=== PATIENT | female | born 1950 | race African-American/Black ===

== ENCOUNTER 2017-03-09 23:19 | Emergency (ER) | payer MEDICARE, OTHER ==
[~2017-03-09 23:19] MED LIST: ASPI-612 PO; CARV12.52 PO; FURO40TA4 PO; LOSA25TA4 PO; POTA25TA4 PO; SIMV20TA3 PO
[2017-03-09] MEDS ORDERED: ALBUTEROL SULFATE 2.5 MG/3 ML NEBU. ONE (23:24)
[2017-03-09] MEDS ORDERED: IPRATRPIUM/ALBUTEROL 0.5/2.5MG 3 ML NEBU. ONE (23:24)
[2017-03-10] MEDS ORDERED: methylPREDNISolone SOD SUCC PF 125 MG/2 ML VIAL. IV ONE (01:15)
[2017-03-10 02:22] VITALS: BP 177/103
[2017-03-10] MEDS ORDERED: PRED50TA PO (02:30)
[2017-03-10] MEDS ORDERED: PROAIR HFA8.5 GM INH (02:30)
--- NOTE | 2017-03-10 02:31 | PHYS DOC ---
Past Medical History Past Medical History: Asthma, Hypertension, Other Additional Past Medical Histor: "leaky" heart valve Past Surgical History: Pacemaker, Other Additional Past Surgical Histo: cardiac cath with stent placement Alcohol Use: Occasionally Drug Use: None Adult General Chief Complaint Chief Complaint: SHORTNESS OF BREATH HPI HPI 66-year-old -Tong[place] female with a history of asthma previous smoker but not for a long time by her description. Patient now presents to the emergency department with an asthma attack. She reports she's been out of her inhaler for 2 days. Patient thinks doubt whether triggered her wheezing. She has no productive cough or fever. No other complaints. She is not currently on steroids Review of Systems Review of Systems Constitutional: Denies fever or chills [] Eyes: Denies change in visual acuity, redness, or eye pain [] HENT: Denies nasal congestion or sore throat [] Respiratory: Denies cough or shortness of breath [] Cardiovascular: No additional information not addressed in HPI [] GI: Denies abdominal pain, nausea, vomiting, bloody stools or diarrhea [] : Denies dysuria or hematuria [] Musculoskeletal: Denies back pain or joint pain [] Integument: Denies rash or skin lesions [] Neurologic: Denies headache, focal weakness or sensory changes [] Endocrine: Denies polyuria or polydipsia [] All other systems were reviewed and found to be within normal limits, except as documented in this note. Current Medications Current Medications Current Medications Medications (Trade) Dose Ordered Sig/Humberto Start Time Stop Time Status Last Admin Dose Admin Albuterol Sulfate (Ventolin Neb Soln) 2.5 mg STK-MED ONCE 03/09/17 23:24 03/09/17 23:25 DC Albuterol/ Ipratropium (Duoneb) 3 ml STK-MED ONCE 03/09/17 23:24 03/09/17 23:25 DC Methylprednisolone Sodium Succinate (SOLU-Medrol 125MG VIAL) 125 mg 1X ONCE 03/10/17 01:15 03/10/17 02:15 DC 03/10/17 01:45 125 MG Allergies Allergies Allergies Coded Allergies Type Severity Reaction Last Updated Verified No Known Drug Allergies 08/15/13 No Physical Exam Physical Exam Well-appearing patient mild tachypnea on arrival. Bilateral bronchospasm. She is alert communicative cooperative and appropriate in no acute distress. Exam otherwise benign including no lower extremity edema Constitutional: Well developed, well nourished, no acute distress, non-toxic appearance. [] HENT: Normocephalic, atraumatic, bilateral external ears normal, oropharynx moist, no oral exudates, nose normal. [] Eyes: PERRLA, EOMI, conjunctiva normal, no discharge. [] Neck: Normal range of motion, no tenderness, supple, no stridor. [] Cardiovascular:Heart rate regular rhythm, no murmur [] Lungs & Thorax: As above Abdomen: Bowel sounds normal, soft, no tenderness, no masses, no pulsatile masses. [] Skin: Warm, dry, no erythema, no rash. [] Back: No tenderness, no CVA tenderness. [] Extremities: No tenderness, no cyanosis, no clubbing, ROM intact, no edema. [] Neurologic: Alert and oriented X 3, normal motor function, normal sensory function, no focal deficits noted. [] Psychologic: Affect normal, judgement normal, mood normal. [] Current Patient Data Vital Signs Vital Signs Date Time Temp Pulse Resp B/P (MAP) Pulse Ox O2 Delivery O2 Flow Rate FiO2 03/10/17 02:22 97 21 177/103 (127) 100 Nasal Cannula 2.0 03/09/17 23:22 97.6 97.6 EKG EKG [] Radiology/Procedures Radiology/Procedures [] Course & Med Decision Making Course & Med Decision Making Pertinent Labs and Imaging studies reviewed. (See chart for details) Signs and symptoms consistent with exacerbation of asthma triggered by weather. Patient with no productive cough or infectious prodrome. X-ray unremarkable remainder of workup benign. Patient dramatically improved after respiratory therapy. She feels near baseline and is comfortable with outpatient follow-up. We'll prescribe steroids and inhaler with spacer. She'll follow up with PCP in one day. She agrees with outpatient follow-up and strict return precautions given [] Dragon Disclaimer Dragon Disclaimer This electronic medical record was generated, in whole or in part, using a voice recognition dictation system. Departure Departure Impression: Primary Impression: Asthma exacerbation Disposition: HOME, SELF-CARE Condition: IMPROVED Referrals: NO PCP (PCP) Patient Instructions: Asthma, Adult Additional Instructions: B been experiencing an attack of asthma this evening. Use your inhaler with a spacer 2 puffs every 4 hours as needed. Finish prednisone once a day for 5 days as prescribed. Follow-up with your doctor tomorrow for reevaluation and return immediately for new severe or worsening symptoms Scripts Albuterol Sulfate (PROAIR HFA INHALER) 8.5 Gm Hfa.aer.ad 1 PUFF INH Q4HRS Y for SHORTNESS OF BREATH, #1 INHALER 0 Refills Prov: JOS NAIR MD 03/10/17 Prednisone (PREDNISONE) 50 Mg Tablet 1 TAB PO DAILY, #5 TAB Prov: JOS NAIR MD 03/10/17 JOS NAIR MD Mar 10, 2017 02:31
--- NOTE | 2017-03-10 08:42 | RAD ---
EXAM: Chest one view. HISTORY: Shortness of breath, asthma, wheezing. COMPARISON: 09/14/2013. FINDINGS: A frontal view of the chest is obtained. A left-sided pacer/defibrillator has its leads in the right atrium and right ventricle. There are no confluent infiltrates. There is no pneumothorax or pleural effusion. The heart is moderately enlarged. IMPRESSION: 1. Moderate cardiomegaly.
== END 2017-03-10 03:06 | disposition home or self-care (01) ==
LOC: ER 23:19
DX: J45.901 Unspecified asthma with (acute) exacerbation (principal); I10 Essential (primary) hypertension; Z95.0 Presence of cardiac pacemaker; Z95.5 Presence of coronary angioplasty implant and graft; Z87.891 Personal history of nicotine dependence; Z79.899 Other long term (current) drug therapy
CPT/HCPCS: 71010; 94250; 94640; 96374; 99284; J2930

== ENCOUNTER → 2017-06-04 | Outpatient (CLI) | payer MEDICARE, OTHER ==
[2017-06-04] MEDS: REGADENOSON 0.4 MG/5 ML DISP.SYRIN. IV (08:45)
== END | disposition home or self-care (01) ==
LOC: NM 08:22
DX: I25.5 Ischemic cardiomyopathy (principal); I25.10 Atherosclerotic heart disease of native coronary artery without angina pectoris
CPT/HCPCS: 78452; 93017; 93306; 96374; 96375; 96376; A9500; J2785

== ENCOUNTER → 2017-09-18 | Outpatient (CLI) | payer MEDICARE, OTHER | END | disposition home or self-care (01) | LOC: CT 08:02 | DX: J18.9 Pneumonia, unspecified organism (principal); I31.3 Pericardial effusion (noninflammatory); E01.0 Iodine-deficiency related diffuse (endemic) goiter; I51.7 Cardiomegaly | CPT/HCPCS: 71250 ==

== ENCOUNTER → 2017-10-23 | Outpatient (CLI) | payer MEDICARE, OTHER | END | disposition home or self-care (01) | LOC: KCIC MAMMO 12:45 | DX: R92.8 Other abnormal and inconclusive findings on diagnostic imaging of breast (principal); I13.0 Hypertensive heart and chronic kidney disease with heart failure and stage 1 through stage 4 chronic kidney disease, or unspecified chronic kidney disease; I50.23 Acute on chronic systolic (congestive) heart failure; N18.3 Chronic kidney disease, stage 3 (moderate); E78.5 Hyperlipidemia, unspecified; E78.00 Pure hypercholesterolemia, unspecified; J44.1 Chronic obstructive pulmonary disease with (acute) exacerbation | CPT/HCPCS: 76641; 77066; G0279 ==

== ENCOUNTER → 2017-11-12 | Outpatient (CLI) | payer MEDICARE, OTHER | END | disposition home or self-care (01) | LOC: US 08:14 | DX: N60.31 Fibrosclerosis of right breast (principal); I13.0 Hypertensive heart and chronic kidney disease with heart failure and stage 1 through stage 4 chronic kidney disease, or unspecified chronic kidney disease; N18.3 Chronic kidney disease, stage 3 (moderate); I50.23 Acute on chronic systolic (congestive) heart failure; J44.1 Chronic obstructive pulmonary disease with (acute) exacerbation; E78.00 Pure hypercholesterolemia, unspecified; I25.10 Atherosclerotic heart disease of native coronary artery without angina pectoris; Z95.5 Presence of coronary angioplasty implant and graft; Z95.0 Presence of cardiac pacemaker; Z87.01 Personal history of pneumonia (recurrent); F17.200 Nicotine dependence, unspecified, uncomplicated; Z79.82 Long term (current) use of aspirin; Z79.899 Other long term (current) drug therapy | CPT/HCPCS: 19081; 19083; 76942; 77065; 88305; C1713 ==

== ENCOUNTER 2018-01-19 09:16 | Outpatient (CLI) | payer MEDICARE, OTHER ==
[~2018-01-19] VITALS: Ht 154.9 cm; Wt 68.0 kg
[~2018-01-19 09:16] MED LIST changes: +BACITRACIN 50,000 UNIT in IV NORMAL SALINE 250ML 250 ML IRR ONE; +LEVO500T59 PO; +LISI-334 PO; -LOSA25TA4 PO; +LOSA25TA5 PO; +PRED50TA PO; +PROAIR HFA8.5 GM INH; +SACU1TAB PO
[2018-01-19 09:47] LABS: HEMATOCRIT 42.6 % (36.0-47.0); RED BLOOD COUNT 4.64 x10^6/uL (3.50-5.40); RED CELL DISTRIBUTION WIDTH 13.7 % (11.5-14.5); WHITE BLOOD COUNT 4.5 x10^3/uL (4.0-11.0)
[2018-01-19 09:55] LABS: CREATININE 1.1 mg/dL (0.6-1.0); GFR 59.9; POTASSIUM 4.1 mmol/L (3.5-5.1)
[2018-01-19] MEDS ORDERED: VANCOMYCIN 1 GM in IV DEXTROSE 5% 250 ML IV ONE (10:00)
[2018-01-19 10:06] LABS: PROTHROMBIN TIME PATIENT 12.8 SEC (11.7-14.0)
[2018-01-19] MEDS ORDERED: LIDOCAINE 2%/EPI 1:100,000 20 ML VIAL. ONE (10:20)
[2018-01-19 10:42] VITALS: BP 159/98
[2018-01-19] MEDS ORDERED: fentaNYL PF VIAL 100 MCG/2 ML VIAL ONE ×2 (10:54→11:40)
[2018-01-19] MEDS ORDERED: MIDAZOLAM HCL/PF 2 MG/2 ML VIAL. ONE ×2 (10:55→11:41)
[2018-01-19] MEDS ORDERED: MIDAZOLAM HCL/PF 2 MG/2 ML VIAL. IV ONE (12:00)
[2018-01-19] MEDS ORDERED: LIDOCAINE 2%/EPI 1:100,000 20 ML VIAL. IJ ONE (12:00)
[2018-01-19] MEDS ORDERED: fentaNYL PF VIAL 100 MCG/2 ML VIAL IV ONE (12:00)
[2018-01-19 12:14] VITALS: BP 133/74
[2018-01-19 12:23] VITALS: BP 123/68
--- NOTE | 2018-01-19 12:49 | CARD ---
MR#: [id number] Date of Study: 01/19/2018 Ordering Physician: TACOS CHAPMAN, Referring Physician: TACOS CHAPMAN, Tech: APPROVED REPORT EXAM Successful Biotronik automatic implantable cardioverter defibrillator generator change Moderate sedation: 41 minutes INDICATIONS Chronic systolic heart failure, AICD battery depletion PROCEDURE After explaining the risks, benefits, and alternative options, informed consent was obtained from the patient. The patient was brought to the cardiac catheterization lab and the left chest and shoulder were prepp ed and draped in the usual fashion. 25 mL of 2% lidocaine was infiltrated into the skin and subcutaneous tissues for local anesthesia. An incision was made over the previous scar and using blunt dissection and cautery the pocket was opene d, capsule exposed and opened and the previously placed generator removed from the pocket. The leads were detached, interrogated and found to be functioning well and reattached to a Biotronik dual-chamb er AICD generator model Iperia 7 DR-T, serial #[id number]. This was placed in the pocket that was subse quently closed in 3 layers. Hemostasis was secured. Patient tolerated the procedure well. There were no immediate complications. CONCLUSION Successful Biotronik dual-chamber AICD generator change for battery depletion Signed by : Tacos Chapman, Electronically Approved : 01/19/2018 12:48:11
[2018-01-19 12:56] VITALS: BP 148/72
--- NOTE | 2018-01-26 10:41 | CARD ---
MR#: [id number] Date of Study: 01/19/2018 Ordering Physician: TACOS CHAPMAN, Referring Physician: TACOS CHAPMAN, Tech: APPROVED REPORT EXAM Successful Biotronik automatic implantable cardioverter defibrillator generator change Moderate sedation: 41 minutes INDICATIONS Chronic systolic heart failure, AICD battery depletion PROCEDURE After explaining the risks, benefits, and alternative options, informed consent was obtained from the patient. The patient was brought to the cardiac catheterization lab and the left chest and shoulder were prepp ed and draped in the usual fashion. 25 mL of 2% lidocaine was infiltrated into the skin and subcutaneous tissues for local anesthesia. An incision was made over the previous scar and using blunt dissection and cautery the pocket was opene d, capsule exposed and opened and the previously placed generator removed from the pocket. The leads were detached, interrogated and found to be functioning well and reattached to a Biotronik dual-chamb er AICD generator model Iperia 7 DR-T, serial #[id number]. This was placed in the pocket that was subse quently closed in 3 layers. Hemostasis was secured. Patient tolerated the procedure well. There were no immediate complications. CONCLUSION Successful Biotronik dual-chamber AICD generator change for battery depletion Signed by : Tacos Chapman, Electronically Approved : 01/19/2018 12:48:11
== END 2018-01-19 13:30 | disposition home or self-care (01) ==
LOC: CCL 09:16
PROVIDERS: ATTEND Internal Medicine Cardiovascular Disease
DX: Z45.02 Encounter for adjustment and management of automatic implantable cardiac defibrillator (principal); I25.5 Ischemic cardiomyopathy; I25.2 Old myocardial infarction; I25.10 Atherosclerotic heart disease of native coronary artery without angina pectoris; Z79.01 Long term (current) use of anticoagulants; Z79.82 Long term (current) use of aspirin; Z79.899 Other long term (current) drug therapy; I47.1 Supraventricular tachycardia; I11.0 Hypertensive heart disease with heart failure; I50.22 Chronic systolic (congestive) heart failure; I34.0 Nonrheumatic mitral (valve) insufficiency; Z95.5 Presence of coronary angioplasty implant and graft; Z98.890 Other specified postprocedural states; Z87.891 Personal history of nicotine dependence; Z72.89 Other problems related to lifestyle
CPT/HCPCS: 33263; 36415; 80048; 85027; 85610; 99152; 99153; C1721; J0690; J2250; J3010; J3490; J7050; 33240; J7030

== ENCOUNTER → 2018-03-17 | Outpatient (CLI) | payer MEDICARE, OTHER ==
[2018-03-14 11:05] VITALS: BP 137/82
[~2018-03-17] MED LIST changes: -BACITRACIN 50,000 UNIT in IV NORMAL SALINE 250ML 250 ML IRR ONE; +CARV12.511 PO; -CARV12.52 PO; +SACU1TAB4 PO
[2018-03-17 09:08] LABS: CREATININE 1.2 mg/dL (0.6-1.0); GFR 54.2; POTASSIUM 4.3 mmol/L (3.5-5.1)
== END | disposition home or self-care (01) ==
LOC: LAB 08:20
PROVIDERS: ATTEND Internal Medicine Cardiovascular Disease
DX: I11.0 Hypertensive heart disease with heart failure (principal); I50.22 Chronic systolic (congestive) heart failure
CPT/HCPCS: 36415; 80048

== ENCOUNTER → 2018-08-20 | Outpatient (CLI) | payer MEDICARE, OTHER ==
[2018-03-14 11:05] VITALS: BP 137/82
[~2018-08-20] MED LIST changes: +ALBU2.5V8 INH; +IOHEXOL 300 MG/ML 100ML VIAL. IV ONE; -LOSA25TA5 PO; +LOSA25TA54 PO; -PROAIR HFA8.5 GM INH
[2018-08-20 10:05] LABS: CREATININE 1.1 mg/dL (0.6-1.0); GFR 59.8
--- NOTE | 2018-08-20 11:39 | RAD ---
CT of the chest with contrast 08/20/2018 INDICATION: Chest mass, follow-up COMPARISON STUDY: CT of the chest March 12, 2018, December 02, 2013. FINDINGS: Multidetector CT imaging of the chest was performed following the administration of IV contrast. The heart is enlarged but similar to prior exam. Small amount of pericardial effusion appears to be present. Pacemaking device noted. Stable size and configuration of a 3.7 cm mass at the medial left costophrenic angle. Finding is stable back to 2013 suggesting a benign etiology. Limited visualization of the upper abdomen demonstrates no acute changes. No pneumothorax or significant pleural effusion is identified on today's study. No focal consolidation or infiltrate is seen. No acute osseous changes are identified. IMPRESSION: Stable appearance of the benign-appearing 3.7 cm mass in the medial left costophrenic angle. CT DOSING PQRS STATEMENT: One or more of the following individualized dose reduction techniques were utilized for this examination: 1. Automated exposure control 2. Adjustment of the mA and/or kV according to patient size 3. Use of iterative reconstruction technique Electronically signed by: Tim Roa MD (08/20/2018 11:36 AM) [id number]
== END | disposition home or self-care (01) ==
LOC: CT 09:28
PROVIDERS: ATTEND Internal Medicine Critical Care Medicine
DX: R22.2 Localized swelling, mass and lump, trunk (principal); I31.3 Pericardial effusion (noninflammatory); I51.7 Cardiomegaly
CPT/HCPCS: 36415; 71260; 82565; 84520; Q9967

== ENCOUNTER → 2018-10-27 | Outpatient (CLI) | payer MEDICARE, OTHER ==
[2018-03-14 11:05] VITALS: BP 137/82
[~2018-10-27] MED LIST changes: -IOHEXOL 300 MG/ML 100ML VIAL. IV ONE
--- NOTE | 2018-10-27 17:14 | CARD ---
MR#: [id number] Date of Study: 10/27/2018 Ordering Physician: TACOS BYRNE, Referring Physician: TACOS BYRNE, Tech: Yolette Lozano APPROVED REPORT EXAM: Two-dimensional and M-mode echocardiogram with Doppler and color Doppler. Other Information Quality : AverageHR: 72bpm INDICATION COPD Cardiomyopathy Surgery/Intervention Pacemaker: Date: 2010 RISK FACTORS Hypertension Hyperlipidemia Previous smoker 2D DIMENSIONS RVDd3.0 (2.9-3.5cm)Left Atrium(2D)3.6 (1.6-4.0cm) IVSd1.1 (0.7-1.1cm)Aortic Root(2D)3.0 (2.0-3.7cm) LVDd5.1 (3.9-5.9cm)LVOT Diameter2.0 (1.8-2.4cm) PWd1.2 (0.7-1.1cm)LVDs3.8 (2.5-4.0cm) FS (%) 25.9 %SV61.9 ml Aortic Valve AoV Peak Navid.128.1cm/sAoV VTI22.7cm AO Peak GR.6.6mmHgLVOT Peak Navid.62.6cm/s LVOT VTI 11.49cmAO Mean GR.3mmHg WENDY (VMAX)1.99tk4GWS (VTI)1.59cm2 Mitral Valve MV E Utlyvjxa63.5cm/sMV E Peak Gr.121mmHg MV DECEL [id number] A Sgouxynl65.3cm/s MV E Mean Gr.1mmHgMV VFV60ht E/A Ratio0.9MVA (PHT)4.36cm2 TDI E/Lateral E'13.8E/Medial E'16.0 Pulmonary Valve PV Peak Itpbegax07.4cm/sPV Peak Grad.2mmHg Tricuspid Valve TR P. Nnghghmd789ao/sRAP OPAIZYTE1rjIh TR Peak Gr.58jaJpKYEB93noNy Pulmonary Vein S1 Orxlyvct28.4cm/sD2 Xgfhuinp11.1cm/s PVa qaezjsbu892iyfs LEFT VENTRICLE The left ventricle is normal size. There is mild concentric left ventricular hypertrophy. The Ejectio n Fraction is 30%. Akinesis of inferior and posterior saldana. Transmitral Doppler flow pattern is Grad e I-abnormal relaxation pattern. RIGHT VENTRICLE The right ventricle is normal size. There is normal right ventricular wall thickness. The right ventr icular systolic function is normal. There is a pacemaker lead in the right ventricle. ATRIA The left atrium is mildly dilated. The right atrium size is normal. There is a pacemaker lead seen in the right atrium. The interatrial septum is intact with no evidence for an atrial septal defect or p atent foramen ovale as noted on 2-D or Doppler imaging. AORTIC VALVE The aortic valve is normal in structure and function. Doppler and Color Flow revealed trace aortic re gurgitation. There is no significant aortic valvular stenosis. MITRAL VALVE The mitral valve is thickened but opens well. There is no evidence of mitral valve prolapse. There is no mitral valve stenosis. Moderate mitral regurgitation. TRICUSPID VALVE The tricuspid valve is normal in structure and function. Doppler and Color Flow revealed trace tricus pid regurgitation There is no tricuspid valve stenosis. PULMONIC VALVE The pulmonic valve is not well visualized. Doppler and Color Flow revealed trace pulmonic valvular re gurgitation. GREAT VESSELS The aortic root is normal in size. The IVC is normal in size and collapses >50% with inspiration. PERICARDIAL EFFUSION There is a trace circumferential pericardial effusion. Critical Notification Critical Value: No <Conclusion> Akinesis of inferior and posterior saldana. The Ejection Fraction is 30%. Transmitral Doppler flow pattern is Grade I-abnormal relaxation pattern. There is a pacemaker lead in the RA/RV. Moderate mitral regurgitation. Doppler and Color Flow revealed trace tricuspid regurgitation There is a trace circumferential pericardial effusion. Signed by : Tacos Byrne, Electronically Approved : 10/27/2018 17:14:11
== END | disposition home or self-care (01) ==
LOC: ECHO 12:59
PROVIDERS: ATTEND Internal Medicine Cardiovascular Disease
DX: I34.0 Nonrheumatic mitral (valve) insufficiency (principal); I51.7 Cardiomegaly; I25.5 Ischemic cardiomyopathy; J44.9 Chronic obstructive pulmonary disease, unspecified; Z95.0 Presence of cardiac pacemaker
CPT/HCPCS: 93306

== ENCOUNTER → 2019-07-06 | Day surgery (SDC) | payer MEDICARE, MEDICAID ==
[~2019-07-06] MED LIST changes: +AMLO10TA8 PO; +DOXY100T PO; +HYDROmorphone 2 MG/ML VIAL IV PRN; +IV RINGERS,LACTATED 1000ML 1,000 ML IV SCH; +MORPHINE SULFATE 2 MG/ML VIAL. IV PRN; +ONDANSETRON PF 4 MG/2 ML VIAL. IV PRN; +PROCHLORPERAZINE 10 MG/2 ML VIAL. IV PRN; +PROPOFOL 20 ML IV ONE; +SIMV20TA18 PO; -SIMV20TA3 PO; +fentaNYL PF VIAL 100 MCG/2 ML VIAL IV PRN
--- NOTE | 2019-07-06 08:52 | HP ---
ADMIT DATE: 07/06/2019 UPDATE HISTORY AND PHYSICAL REASON: Blood in stool. HISTORY OF PRESENT ILLNESS: A 68-year-old -Angolan female whose past medical history is significant for COPD, heart failure, hypertension, status post IL, status post AICD is seen with blood in stool. There is no diarrhea or constipation. Weight and appetite are stable. No visible melena or hematochezia are noted with recent events. The patient is here today for further evaluation. PAST MEDICAL HISTORY: Asthma, CHF, COPD, hypertension, myocardial infarction, sleep apnea. ALLERGIES: None. MEDICATIONS: Albuterol, amlodipine, aspirin, carvedilol, doxycycline, furosemide, valsartan and simvastatin. FAMILY AND SOCIAL HISTORY: Significant for diabetes with her father and sister. SOCIAL HISTORY: She is a previous smoker, social drinker. PAST SURGICAL HISTORY: Defibrillator pacemaker placement. REVIEW OF SYSTEMS: As per records. PHYSICAL EXAMINATION: GENERAL: Reveals a thin -Ang[place] female who is alert, cooperative, in no acute distress. VITAL SIGNS: Pulse 90, respirations 18, blood pressure is 130/70. LUNGS: Clear. CARDIOVASCULAR: Reveals an S1, S2 without S3, S4 or appreciable murmur. ABDOMEN: Reveals soft abdomen, normal bowel sounds, without appreciable hepatosplenomegaly. EXTREMITIES: Reveals no cyanosis, clubbing or edema. IMPRESSION AND PLAN: Blood in stool, etiology is to be determined. Differential includes colonic polyps, malignancy, arteriovenous malformations. Therefore, recommend colonoscopy. Risks and benefits of procedure including risk of hemorrhage and perforation during the operation have been discussed. The patient is willing to proceed at this time. SHANNAN GARIBAY MD DR: MALIK/heather JOB#: [id number] / [id number]
[2019-07-06 10:00] VITALS: BP 111/65
== END | disposition home or self-care (01) ==
LOC: ENDOS 08:06
PROVIDERS: ATTEND Internal Medicine Gastroenterology
DX: K55.21 Angiodysplasia of colon with hemorrhage (principal); K57.30 Diverticulosis of large intestine without perforation or abscess without bleeding; K64.0 First degree hemorrhoids; I11.0 Hypertensive heart disease with heart failure; I50.9 Heart failure, unspecified; J44.9 Chronic obstructive pulmonary disease, unspecified; I25.2 Old myocardial infarction; G47.30 Sleep apnea, unspecified; Z79.899 Other long term (current) drug therapy; Z79.82 Long term (current) use of aspirin; Z83.3 Family history of diabetes mellitus; Z95.0 Presence of cardiac pacemaker
CPT/HCPCS: 45378; J2704

== ENCOUNTER → 2019-07-11 | Outpatient (CLI) | payer MEDICARE, MEDICAID ==
[2019-07-06 10:00] VITALS: BP 111/65
[~2019-07-11] MED LIST changes: -HYDROmorphone 2 MG/ML VIAL IV PRN; -IV RINGERS,LACTATED 1000ML 1,000 ML IV SCH; -MORPHINE SULFATE 2 MG/ML VIAL. IV PRN; -ONDANSETRON PF 4 MG/2 ML VIAL. IV PRN; -PROCHLORPERAZINE 10 MG/2 ML VIAL. IV PRN; -PROPOFOL 20 ML IV ONE; +ZOLPIDEM 5 MG TABLET. PO ONE; -fentaNYL PF VIAL 100 MCG/2 ML VIAL IV PRN
--- NOTE | 2019-07-13 20:00 | SLEEP ---
DATE OF STUDY: 07/11/2019 SLEEP STUDY REFERRING PHYSICIAN: Kavon Burks MD HISTORY OF PRESENT ILLNESS: The patient is 68-year-old who weighs 146 pounds with a BMI of 28. The patient's Strunk score was 9. The patient had a sleep study 10 years ago and was positive for JEAN-CLAUDE, but was unable to tolerate CPAP. She wanted to be retested and study was performed at [facility]. During the night study, the patient spent 442 minutes in bed and slept for 341 minutes with a sleep efficiency of 79%. Sleep latency was 46 minutes with a REM latency of 365 minutes. Sleep architecture showed normal stage 1 sleep, increased stage 2 sleep, normal slow wave and reduced REM sleep. During the night study, the patient had 1 obstructive apnea, 3 mixed apneas, no central apneas and 29 hypopneas. The patient's AHI for the entire night was 6 per hour. Supine AHI 6 per hour and REM AHI of 3 per hour. EKG monitoring revealed an average heart rate of 74 beats per minute, no sustained arrhythmias observed. Nocturnal oximetry study revealed a mean oxygen saturation of 96% with the lowest of 82%, 7.8% of time oxygen saturation remained between 80% and 89%. The pattern was suggestive of hypoventilation. PLMS were seen at index of 82 per hour and 14 per hour caused EEG arousals. Due to low AHI, the patient did not meet the split night criteria for CPAP initiation. IMPRESSION: 1. Mild obstructive sleep apnea at an apnea-hypopnea index of 6 per hour. 2. Nocturnal hypoxia secondary to combination of obstructive sleep apnea and suspected hypoventilation. 3. Severe periodic limb movements of sleep. RECOMMENDATIONS: 1. The patient did not meet the split night criteria for CPAP titration due to low AHI. 2. Weight loss to the ideal body weight is recommended. 3. If the patient is clinically symptomatic or has other comorbid conditions, then consider treatment of sleep apnea with either CPAP versus oral appliance. 4. The patient should also be further evaluated for symptoms of restless legs during the day. 5. Avoid PROVIDER RELATIONS REP depressants. 6. Cautioned regarding driving until symptoms of sleep apnea resolve with above recommendations. KAVON BURKS MD DR: JOHNY/heather JOB#: [id number] / [id number]
== END | disposition home or self-care (01) ==
LOC: SLPLAB 19:07
PROVIDERS: ATTEND Internal Medicine Critical Care Medicine
DX: G47.33 Obstructive sleep apnea (adult) (pediatric) (principal); G47.34 Idiopathic sleep related nonobstructive alveolar hypoventilation; G47.61 Periodic limb movement disorder
CPT/HCPCS: 95810

== ENCOUNTER → 2019-10-26 | Outpatient (CLI) | payer MEDICARE, MEDICAID ==
[2019-07-06 10:00] VITALS: BP 111/65
[~2019-10-26] MED LIST changes: +REGADENOSON 0.4 MG/5 ML DISP.SYRIN. IV ONE; -ZOLPIDEM 5 MG TABLET. PO ONE
--- NOTE | 2019-10-26 13:32 | CARD ---
MR#: [id number] Date of Study: 10/26/2019 Ordering Physician: TACOS BYRNE, Referring Physician: TACOS BYRNE, Tech: Yolette Lozano APPROVED REPORT EXAM: Two-dimensional and M-mode echocardiogram with Doppler and color Doppler. Other Information Quality : AverageHR: 60bpm Rhythm : Pacemaker INDICATION Congestive Heart Failure Surgery/Intervention Pacemaker: RISK FACTORS Hypertension Hyperlipidemia Asthma 2D DIMENSIONS Left Atrium(2D)3.8 (1.6-4.0cm)IVSd1.2 (0.7-1.1cm) Aortic Root(2D)2.9 (2.0-3.7cm)LVDd4.8 (3.9-5.9cm) LVOT Diameter2.0 (1.8-2.4cm)PWd1.0 (0.7-1.1cm) LVDs3.7 (2.5-4.0cm)FS (%) 22.7 % SV49.6 mlLVEF(%)45.5 (>50%) Aortic Valve AoV Peak Navid.111.9cm/sAoV VTI22.4cm AO Peak GR.5.0mmHgLVOT Peak Navid.73.3cm/s LVOT VTI 15.81cmAO Mean GR.3mmHg WENDY (VMAX)1.82ai9LRT (VTI)2.27cm2 Mitral Valve MV E Hpoxfnnn58.1cm/sMV E Peak Gr.105mmHg MV DECEL IHSP325qeGO A Cbirfcyy89.4cm/s MV E Mean Gr.1mmHgMV JVR014cy E/A Ratio0.7MVA (PHT)2.10cm2 TDI E/Lateral E'9.9E/Medial E'11.8 Pulmonary Valve PV Peak Gazetrrd92.4cm/sPV Peak Grad.2mmHg Tricuspid Valve TR P. Rfulzdjt699nv/sRAP CYVNUPTB4ukVn TR Peak Gr.04uuKpMYAI61vkYd Pulmonary Vein S1 Bnqrjzbv96.1cm/sD2 Gqcvhsrt20.5cm/s PVa mwzzfjdt299mhck LEFT VENTRICLE The left ventricle is normal size. There is mild concentric left ventricular hypertrophy. The left ve ntricular systolic function is moderately decreased. The Ejection Fraction is 35-40%. The inferior an d posterior saldana are akinetic. Otherwise, mild global hypokinesis. Tissue Doppler imaging reveals mo derate left ventricular diastolic dysfunction. RIGHT VENTRICLE The right ventricle is normal size. There is normal right ventricular wall thickness. The right ventr icular systolic function is normal. There is a pacemaker lead in the right ventricle. ATRIA The left atrium size is normal. The right atrium size is normal. The interatrial septum is intact wit h no evidence for an atrial septal defect or patent foramen ovale as noted on 2-D or Doppler imaging. AORTIC VALVE The aortic valve is thickened but opens well. Doppler and Color Flow revealed trace aortic regurgitat ion. There is no significant aortic valvular stenosis. Calculated aortic valve area is 2.22 cm2 with maximum pressure gradient of 7 mmHg and mean pressure gradient of 4 mmHg. MITRAL VALVE The mitral valve is thickened but opens well. A borderline mitral valve prolapse is present. There is no mitral valve stenosis. Doppler and Color-flow revealed mild mitral regurgitation. TRICUSPID VALVE The tricuspid valve is normal in structure and function. Doppler and Color Flow revealed trace tricus pid regurgitation with an estimated PAP of 28 mmHg. There is no tricuspid valve stenosis. PULMONIC VALVE The pulmonic valve is not well visualized. Doppler and Color Flow revealed no pulmonic valvular regur gitation. There is no pulmonic valvular stenosis. GREAT VESSELS The aortic root is normal in size. The IVC is normal in size and collapses >50% with inspiration. PERICARDIAL EFFUSION There is a small circumferential pericardial effusion. Critical Notification Critical Value: No <Conclusion> The left ventricular systolic function is moderately decreased. The Ejection Fraction is 35-40%. The inferior and posterior saldana are akinetic. Otherwise, mild global hypokinesis. There is a pacemaker lead in the right ventricle. There is a small circumferential pericardial effusion. Signed by : Byron Lemon, Electronically Approved : 10/26/2019 13:31:22
--- NOTE | 2019-10-26 17:43 | RAD ---
MR#: [id number] Date of Study: 10/26/2019 Ordering Physician: TACOS BYRNE, Referring Physician: STEPHANIE SHINE Tech: RT Lenin Mancini) (N) APPROVED REPORT Test Type: Pharmacological Stress Nurse/Tech: Brynn Loyola RN Test Indications: Chronic Systolic Heart Failure, Chest pain. Cardiac History: Family history, Hypertension, High cholesterol, CHF, Pacemaker, ND with 1 stent. Medications: See Electronic Medical Record Medical History: See Electronic Medical Record Resting ECG: SR, Atrial paced. Resting Heart Rate: 64 bpm Resting Blood Pressure: 101/62mmHg Pretest Chest Pain: No chest pain Nurse/Tech Notes S1S2, Lungs CTA Consent: The procedure was explained to the patient in lay terms. Informed consent was witnessed. Kayden eout was entered into [employer]. History and Stress Test performed by RT Lenin Huang) (N) Pharm. Details Pharmacologic stress testing was performed using 0.4mg per 5ml of regadenoson given intravenously ove r 7-10 seconds. Stress Symptoms No chest pain or symptoms, patient denies any symptoms. POST EXERCISE Reason for Termination: Infusion complete Max HR: 120 bpm Max Blood Pressure: 113/63mmHg Blood Pressure response to exercise: Normal blood pressure response during stress. Heart Rate response to exercise: WNL Chest Pain: No. Arrhythmia: No. ST Change: No. INTERPRETATION Stress EKG Conclusion: No evidence of stress induced EKG changes. Imaging Protocol IMAGE PROTOCOL: Rest Tc-99m/stress Tc-99m 1 day Rest: Stress: Viability: Radiopharm.Tc99m XuevorualHn63y Sestamibi Dose10.6mCi 30.2mCi Duration 15min. 15min. Img Date 10/26/2019 10/26/2019 Inj-Img Cjbk39axw. 65min. Rest Admin Site:IV - Right HandAdministrator:RT Lenin Mancini)(N) Stress Admin Site: IV - Right HandAdministrator: RT Lenin Huang)(N) STRESS DATA End Diast. Vol.74.0mlAv. Heart Rate78.0bpm End Syst. Vol.33.0mlCO Index BSA0.0L/min Myocardial Jymr229.0gEject. Qypxwakm67.0% Stress Rates Pk. Fill Rate1.92EDV/secLVtime Pk. Fill 233.06msec Pk. Empty Rate2.92ESV/secLVtime Pk. Azwno998.96msec 1/3 Pk. Fill0.81EDV/sec Stress Scores Regional WT3.00Summed WT32.00 Regional WM0.00Summed WM8.00 LV Perfusion There is a large size fixed basal to distal inferior and inferolateral defect consistent with a large prior RCA territory infarct without any significant viability. No obvious ischemia noted. Wall Motion Moderate LV dysfunction with ejection fraction of 45% with severe inferior wall hypokinesis to akines is. LV Perf. Quant 17 Seg. SSS21.00 17 Seg. SRS19.00 17 Seg. SDS3.00 Stress Defect Extent (% LAD)6.90Rest Defect Extent (% LAD)7.50Rev. Defect Extent (% LAD)1.90 Stress Defect Extent (% LCX) 71.30Rest Defect Extent (% LCX)43.80Rev. Defect Extent (% LCX)67.50 Stress Defect Extent (% RCA)55.60Rest Defect Extent (% RCA)66.70Rev. Defect Extent (% RCA)2.20 Stress Defect Extent (% ANNEMARIE)35.90Rest Defect Extent (% ANNEMARIE)33.90Rev. Defect Extent (% ANNEMARIE)15.40 Other Information Quality:Good Risk Assessment: Moderate-High Risk Conclusion 1. No significant EKG changes on stress testing. 2. Large inferior wall defect as described above consistent with a prior infarct without any signific ant viability 3. Moderate LV dysfunction with ejection fraction of 45% 4. Moderate risk for future cardiovascular events. Signed by : Byron Lemon, Electronically Approved : 10/26/2019 17:43:24
== END | disposition home or self-care (01) ==
LOC: NM 08:56
PROVIDERS: ATTEND Internal Medicine Cardiovascular Disease
DX: I34.0 Nonrheumatic mitral (valve) insufficiency (principal); I50.22 Chronic systolic (congestive) heart failure; Z88.8 Allergy status to other drugs, medicaments and biological substances; Z95.0 Presence of cardiac pacemaker
CPT/HCPCS: 78452; 93017; 93306; A9500; J2785

== ENCOUNTER → 2021-06-12 | Outpatient (CLI) | payer OTHER, MEDICAID ==
[2019-07-06 10:00] VITALS: BP 111/65
[~2021-06-12] MED LIST changes: +AMLO-187 PO; -AMLO10TA8 PO; -ASPI-612 PO; +ASPI-886 PO; -LISI-334 PO; +LISI20TA18 PO
--- NOTE | 2021-06-12 13:07 | RAD ---
MR#: [id number] Date of Study: 06/12/2021 Ordering Physician: TACOS BYRNE, Referring Physician: STEPHANIE SHINE Tech: RT Live (R) (N) APPROVED REPORT Test Type: Pharmacological Stress Nurse/Tech: Lena George R.N. Test Indications: chronic systolic heart failure Cardiac History: heart disease, htn, pacemaker, 1 stent Medications: see ehr Medical History: see ehr Resting ECG: sr with pacemaker spikes noted Resting Heart Rate: 71 bpm Resting Blood Pressure: 98/60mmHg Pretest Chest Pain: No chest pain Nurse/Tech Notes lungs cta, heart tones regular Pharm. Details Pharmacologic stress testing was performed using 0.4mg per 5ml of regadenoson given intravenously ove r 7-10 seconds. Stress Symptoms No chest pain or symptoms. POST EXERCISE Reason for Termination: Infusion complete Target HR: No Max HR: 97 bpm Max Blood Pressure: 105/49mmHg Chest Pain: No. Arrhythmia: No. ST Change: No. INTERPRETATION Stress EKG Conclusion: Baseline EKG showed atrial paced rhythm. Nondiagnostic changes at peak stress . No arrhythmias. Imaging Protocol IMAGE PROTOCOL: Rest Tc-99m/stress Tc-99m 1 day Rest: Stress: Viability: Radiopharm.Tc99m ObhjhnxmaAc93s Sestamibi Dose10.4mCi 32.4mCi Duration 15min. 15min. Img Date 06/12/2021 06/12/2021 Inj-Img Llxr53gte. 60min. Rest Admin Site:IV - Left AntecubitalAdministrator:RT Sal (R)(N) Stress Admin Site: IV - Left AntecubitalAdministrator: RT Sal (R)(N) STRESS DATA End Diast. Vol.77.0mlLVEDV index BSA45.0ml End Syst. Vol.27.0mlLVESV index BSA16.0ml Myocardial Lyud663.0gEject. Fkcaizsy37.0% Stress Scores Regional WT0.00Summed WT11.00 Regional WM0.00Summed WM2.00 LV Perfusion Scintigraphic images showed a large fixed defect involving the inferior, inferolateral and lateral wa lls consistent with previous myocardial infarction without any reversibility. Wall Motion Mild left ventricular systolic dysfunction with ejection fraction calculated at 50%. LV Perf. Quant 17 Seg. SSS18.00 17 Seg. SRS26.00 17 Seg. SDS0.00 Stress Defect Extent (% LAD)5.00Rest Defect Extent (% LAD)30.00Rev. Defect Extent (% LAD)0.00 Stress Defect Extent (% LCX) 60.00Rest Defect Extent (% LCX)73.80Rev. Defect Extent (% LCX)0.00 Stress Defect Extent (% RCA)46.70Rest Defect Extent (% RCA)46.70Rev. Defect Extent (% RCA)3.30 Stress Defect Extent (% ANNEMARIE)31.70Rest Defect Extent (% ANNEMARIE)43.00Rev. Defect Extent (% ANNEMARIE)3.00 Conclusion 1. Regadenoson cardioisotope stress test showed large infarct involving the inferior, inferolateral a nd lateral saldana without any ischemia. 2. Mild left ventricular systolic dysfunction with ejection fraction calculated at 50%. 3. Low risk for cardiac events. Signed by : Tacos Byrne, Electronically Approved : 06/12/2021 13:06:26
--- NOTE | 2021-06-12 13:17 | CARD ---
MR#: [id number] Date of Study: 06/12/2021 Ordering Physician: TACOS CHAPMAN, Referring Physician: TACOS CHAPMAN, Tech: Yolette Lozano [facility] APPROVED REPORT EXAM: Two-dimensional and M-mode echocardiogram with Doppler and color Doppler. Other Information Quality : AverageHR: 69bpm INDICATION Congestive Heart Failure Surgery/Intervention ICD/Pacemaker: RISK FACTORS Hypertension Asthma 2D DIMENSIONS Left Atrium(2D)3.6 (1.6-4.0cm)IVSd0.9 (0.7-1.1cm) Aortic Root(2D)3.0 (2.0-3.7cm)LVDd5.0 (3.9-5.9cm) LVOT Diameter2.0 (1.8-2.4cm)PWd1.1 (0.7-1.1cm) LVDs3.4 (2.5-4.0cm)FS (%) 32.6 % SV70.9 mlLVEF(%)60.8 (>50%) Aortic Valve AoV Peak Navid.123.0cm/sAoV VTI27.5cm AO Peak GR.6.1mmHgLVOT Peak Navid.91.9cm/s LVOT VTI 26.50cmAO Mean GR.3mmHg WENDY (VMAX)1.51by9WMP (VTI)3.11cm2 Mitral Valve MV E Epqaswul96.5cm/sMV E Peak Gr.89mmHg MV DECEL [id number] A Fmbbojud13.4cm/s MV E Mean Gr.3mmHgMV AEL11fn E/A Ratio0.8MVA (PHT)4.47cm2 TDI E/Lateral E'13.7E/Medial E'14.0 Pulmonary Valve PV Peak Aikujywj65.8cm/sPV Peak Grad.2mmHg Tricuspid Valve TR P. Iaamlwic128wg/sRAP TSFFNFGL3doEj TR Peak Gr.01oaAwMNKX92gfCf Pulmonary Vein S1 Mmdxinoy96.5cm/sD2 Niztugpv20.1cm/s PVa [id number] LEFT VENTRICLE The left ventricle is normal size. There is normal left ventricular wall thickness. Basal inferior an d posterior wall hypokinesis. The Ejection Fraction is 50-55%. Transmitral Doppler flow pattern is Gr jose angel I-abnormal relaxation pattern. RIGHT VENTRICLE The right ventricle is borderline dilated measuring 3.71 cm. There is normal right ventricular wall t hickness. The right ventricular systolic function is normal. There is a pacemaker lead in the right v entricle. ATRIA The left atrium is mildly dilated. The right atrium size is normal. The interatrial septum is intact with no evidence for an atrial septal defect or patent foramen ovale as noted on 2-D or Doppler imagi ng. AORTIC VALVE The aortic valve is normal in structure and function. Doppler and Color Flow revealed trace aortic re gurgitation. There is no significant aortic valvular stenosis. Calculated aortic valve area is 2.68 c m2 with maximum pressure gradient of 8 mmHg and mean pressure gradient of 4 mmHg. MITRAL VALVE The mitral valve is thickened but opens well. There is no evidence of mitral valve prolapse. There is no mitral valve stenosis. Doppler and Color-flow revealed mild mitral regurgitation. TRICUSPID VALVE The tricuspid valve is normal in structure and function. Doppler and Color Flow revealed trace tricus pid regurgitation with an estimated PAP of 27 mmHg. There is no tricuspid valve stenosis. PULMONIC VALVE The pulmonic valve is not well visualized. Doppler and Color Flow revealed no pulmonic valvular regur gitation. GREAT VESSELS The aortic root is normal in size. The ascending aorta is normal in size. The IVC is normal in size a nd collapses >50% with inspiration. PERICARDIAL EFFUSION There is a small pericardial effusion. Critical Notification Critical Value: No <Conclusion> Basal inferior and posterior wall hypokinesis. The Ejection Fraction is 50-55%. Transmitral Doppler flow pattern is Grade I-abnormal relaxation pattern. Pacer wires noted RA/RV. Mild mitral regurgitation. Trace tricuspid regurgitation with an estimated PAP of 27 mmHg. There is a small pericardial effusion. Signed by : Tacos Chapman, Electronically Approved : 06/12/2021 13:17:30
== END ==
LOC: NM 08:00
PROVIDERS: ATTEND Internal Medicine Cardiovascular Disease
DX: I34.0 Nonrheumatic mitral (valve) insufficiency (principal); I50.22 Chronic systolic (congestive) heart failure
CPT/HCPCS: 78452; 93017; 93306; A9500; J2785; C8929